=== PATIENT | female | born 1960 | race Caucasian/White ===

== ENCOUNTER → 2023-12-31 13:58 | Outpatient (REF) | payer OTHER, SELFPAY | LOC: DHCBS MAIN 13:58 | PROVIDERS: ATTENDING PHYSICIAN Internal Medicine Cardiovascular Disease; FAMILY PHYSICIAN Family Medicine | DX: R00.0 Tachycardia, unspecified (principal); R94.31 Abnormal electrocardiogram [ECG] [EKG] | CPT/HCPCS: 93306 ==